=== PATIENT | female | born 1990 | race Caucasian/White ===

== ENCOUNTER 2023-02-10 05:28 | Inpatient (IN) ==
[2023-02-10] MEDS ORDERED: LACTATED RINGER'S 1,000 ML IV PRN (05:48)
[2023-02-10] MEDS ORDERED: OXYTOCIN 30 UNITS/500 ML BAG IV PRN ×3 (05:48→11:10)
[2023-02-10] MEDS ORDERED: LIDOCAINE 1% LOCAL 20 ML VIAL INFIL PRN (05:48)
[2023-02-10] MEDS ORDERED: BUPIVACAINE 0.25% PF 30 ML VIAL ONE (06:10)
[2023-02-10] MEDS ORDERED: LIDOCAINE 2%/EPINEPHRINE 1:200,000 20 ML PF ONE (06:10)
[2023-02-10] MEDS ORDERED: ePHEDrine sulfate 50 MG/ML AMP ONE (06:10)
[2023-02-10] MEDS ORDERED: fentaNYL citrate PF 100 MCG/2 ML VIAL ONE (06:10)
[2023-02-10] MEDS ORDERED: SODIUM CHLORIDE 0.9% PF INJ 10 ML VIAL ONE (06:10)
[2023-02-10] MEDS ORDERED: fentaNYL 2MCG/ML ROPIVACAINE 1.25MG/ML 100 ML BAG EPI ONE (06:11)
[2023-02-10 06:31] LABS: Hematocrit (blood only) 29.8 % (37.0-47.0); Hemoglobin 9.9 g/dl (12.0-16.0); Mean Corpuscular Hemoglobin 25.3 pg (25.0-34.0); Mean Corpuscular Hgb Conc 33.2 g/dL (32.0-36.0); Mean Platelet Volume 11.4 fL (9.4-12.4); Platelet Count 275 K/uL (130-400); RDW Coefficient of Variation 14.4 % (11.5-14.5); RDW Standard Deviation 39.4 fL (36.4-46.3); Red Blood Count 3.92 M/uL (4.20-5.40); White Blood Count 13.34 K/ul (4.8-10.8)
--- NOTE | 2023-02-10 07:20 | History & Physical Report ---
Date of Service February 10, 2023 Assessment & Plan (1) with 37 weeks completed gestation: (2) SROM (spontaneous rupture of membranes): Plan Plan admission, epidural on demand. pit if indicated. fetus category. anticipate . The baby at last us was in the >96% on last ultrasound. Patient is aware of this and potential risk of should dystocia. Had been scheduled for induction at 39 weeks. Admission and Anticipated Discharge Date Admission Date: February 10, 2023 History of Present Illness Chief Complaint: srom Primary Care Provider: Roseann Jordan DO Patient is a 32yowf who was just in labor and delivery for decreased fm and r/o rupture . she was brent and walked for 2 hours with no change--3cm. she wished to go home and then shortly had srom of copious clear fluid and represents. and Delivery Plans rhogam candidate - Rhogam given 12/10/22- MK Flu shot given 08/15/22 - AL Anatomy EFW 96% *Growth US at 32wks 36 wks <98%, eIOL 02/22 at 39 wks OB Labs: Blood Type B Negative 07/25/22 Antibody Screen POSITIVE A 01/24/23 Hemoglobin 9.8 g/dl (12.0-16.0) L 12/10/22 Hematocrit 28.8 % (34.1-44.9) L 12/10/22 Mean Corpuscular Volume 82.9 fL (80.0-100.0) 07/25/22 Platelet Count 249 K/uL (130-400) 07/25/22 Rubella IgG Antibody Immune (Immune) 07/25/22 Rapid Plasma Reagin Nonreactive (Nonreactive) 07/25/22 Hepatitis B Surface Antigen. NON-REACTIVE (NON-REACTIVE) 07/25/22 Hepatitis C Antibody (EIA) NON-REACTIVE (NON-REACTIVE) 07/25/22 HIV (1&2) Ag and Ab Confirmation NON-REACTIVE (NON-REACTIVE) 07/25/22 Glucose 1 Hour 50 gm Load 79 mg/dl (70-130) 12/10/22 Maternal Serum Alpha Fetoprotein 29.5 ng/mL 09/14/22 OB Optional Labs: Chlamydia trachomatis RNA NOT DETECTED (NOT DETECTED) 07/25/22 Neisseria gonorrhoeae RNA NOT DETECTED (NOT DETECTED) 07/25/22 Alpha Fetoprotein Triple Screen SEE NOTE 09/14/22 afp neg gbs neg cf/sma neg low risk panorama Allergies Allergy/AdvReac Type Severity Reaction Status Date / Time amoxicillin Allergy Severe Anaphylaxis Verified 02/10/23 00:11 Penicillins Allergy Severe Anaphylaxis Verified 02/10/23 00:11 Home Medications Medication Instructions Recorded Confirmed Type prenat.vits,shaylee,[id number] 1 tab PO DAILY 07/23/22 02/10/23 History omeprazole magnesium 20 mg 20 mg PO DAILY 02/10/23 02/10/23 History tablet,delayed release (Prilosec OTC) Patient History Medical History Bipolar disorder Foot drop History of chicken pox Surgical History No history of previous surgery Family History Grandmother (Maternal) Myocardial infarction Grandfather (Maternal) Myocardial infarction Diabetes Denies family history of Ovarian cancer Breast cancer Colorectal cancer Social History Smoking Status: Never smoker Hx Alcohol Use: No Hx Substance Use: No Preferred Language: [place] Citizen Communication Ability: Effective Harpoon Engagement Planning Operator Required: No Beliefs That Will Affect Care: None marital status: marital status details: Ever Puga (29) [phone] Current Living Situation: Spouse and Family Current Living Situation Comment: lives with spouse, daughter, dog, cat-to wear gloves/mask current occupational status: employed 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 Date GA wks Lbr Lgth wt Sex Type del Anes Place Del Prov ? Comment 03/12/16 38 11 7-13 F Epid ural Other [facility], [place] N drop foot related to epidural-pinched nerve [employer] History noncontributory Physical Exam Constitutional: WD/WN, vitals as above Gastrointestinal (Abdomen): soft, gravid, nt Psychiatric: A+Ox3, euthymic affect Genitourinary: cx--4-5 per nursing, grossly ruptured toco--q2-4 min efm--130s with mod variability, accels to 150s, no decels Results & Data Vital Signs (Past 12 Hours) Vital Signs Temp Pulse Resp BP Pulse Ox 02/10/23 05:52 36.9 C 20 02/10/23 07:17 95 H 121/66 02/10/23 07:13 85 100 02/10/23 07:12 91 H 91 02/10/23 07:08 94 H 100 02/10/23 07:03 86 100 02/10/23 06:59 20 02/10/23 06:59 36.8 C 20 02/10/23 06:58 86 100 02/10/23 06:53 80 100 02/10/23 06:48 75 100 02/10/23 06:43 86 100 02/10/23 06:38 81 100 02/10/23 06:33 88 100 02/10/23 06:28 81 100 02/10/23 06:23 78 100 02/10/23 06:18 79 100 02/10/23 06:13 76 100 02/10/23 06:08 75 100 02/10/23 06:07 77 117/77 Coding Level of Care Code None Diagnoses with 37 weeks completed gestation Z3A.37 SROM (spontaneous rupture of membranes)
[2023-02-10] MEDS ORDERED: fentaNYL 2MCG/ML ROPIVACAINE 1.25MG/ML 100 ML BAG EPI PRN (07:25)
[2023-02-10] MEDS ORDERED: NALOXONE HCL 1 MG in SODIUM CHLORIDE 0.9% 1000ML 1,000 ML IV PRN (07:25)
[2023-02-10] MEDS ORDERED: ePHEDrine sulfate 50 MG/ML AMP IV PRN (07:25)
[2023-02-10] MEDS ORDERED: diphenhydrAMINE 50 MG/ML VIAL IV PRN (07:25)
[2023-02-10] MEDS ORDERED: NALOXONE HCL 0.4 MG/1 ML VIAL/CARP IV PRN (07:25)
[2023-02-10] MEDS ORDERED: ONDANSETRON INJ 2 MG/ML 2 ML VIAL IV PRN (07:25)
[2023-02-10] MEDS ORDERED: NALBUPHINE HCL INJ 10 MG/ML AMP IV PRN (07:25)
--- NOTE | 2023-02-10 07:25 | Anesthesiology Consultation ---
Date of Service February 10, 2023 Assessment & Plan Chart Review Chart Review: Patient NOT seen in Pre Admission Testing and Acceptable Risk for Labor Epidural Consults Requested none ASA ASA2 Proposed Anesthesia Anesthesia Type: Labor Epidural Risk / Benefits Reviewed With: PT / POA / Parent / Guardian, Accepts Plan and Informed Consent Obtained History Height/Weight Height: 5 ft 5 in Weight: 74.389 kg Allergies Allergy/AdvReac Type Severity Reaction Status Date / Time amoxicillin Allergy Severe Anaphylaxis Verified 02/10/23 00:11 Penicillins Allergy Severe Anaphylaxis Verified 02/10/23 00:11 Medications Home Medications Medication Instructions Recorded Confirmed Last Taken prenat.vits,shaylee,[id number]-[id number]-hazii 1 tab PO DAILY 07/23/22 02/10/23 02/10/23 omeprazole magnesium 20 mg 20 mg PO DAILY 02/10/23 02/10/23 02/09/23 tablet,delayed release (Prilosec OTC) Active Medications Generic Name Dose Route Start Last Admin Trade Name Freq PRN Reason Stop Dose Admin Lactated Ringer's 1,000 mls @ 125 mls/hr 02/10/23 05:48 02/10/23 06:49 Lr IV 02/12/23 05:47 125 mls/hr .Q8H PRN Infusion L&D Protocol Protocol Past Medical History Medical History Bipolar disorder Foot drop History of chicken pox Exercise / Class Metabolic Activity II 4-5 Yardwork/Stairs/Walk up hill Past Family History Family History Grandmother (Maternal) Myocardial infarction Grandfather (Maternal) Myocardial infarction Diabetes Denies family history of Ovarian cancer Breast cancer Colorectal cancer Past Surgical History Surgical History No history of previous surgery Past Anesthesia History No Hx of Anesthesia Complications and No Family Hx of Anesthesia Complications History of PONV No Hx of PONV and No Hx of Motion Sickness Social History Smoking Status: Never smoker Hx Alcohol Use: No Hx Substance Use: No substance use type: does not use Physical Exam Vital Signs Last Vital Signs Temp 36.8 C 02/10/23 06:59 Pulse 94 H 02/10/23 07:23 Resp 20 02/10/23 06:59 BP 119/74 02/10/23 07:23 Pulse Ox 100 02/10/23 07:23 ENMT Mouth: no dentition abnormality Thyromental Distance: > or= 3.5 Finger Breadths Mallampati Class: II Neck normal visual inspection Respiratory normal respiratory effort Auscultation: lungs clear to auscultation bilaterally Cardiovascular Rate/Rhythm: regular rate and regular rhythm Psychiatric Orientation: alert Testing Laboratory Results 02/10/23 05:57
[2023-02-10] MEDS ORDERED: METHYLERGONOVINE MALEATE 0.2 MG/ML AMP ONE (11:07)
[2023-02-10] MEDS ORDERED: bisacodyL 10 MG SUPP PR PRN (11:10)
[2023-02-10] MEDS ORDERED: BENZOCAINE 20% AER SPR 82.5 GM CAN EXT PRN (11:10)
[2023-02-10] MEDS ORDERED: oxyCODONE/ACETAMINOPHEN 5mg/325mg TAB PO PRN (11:10)
[2023-02-10] MEDS ORDERED: METHYLERGONOVINE MALEATE 0.2 MG/ML AMP IM ONE (11:10)
[2023-02-10] MEDS ORDERED: HYDROCORTISONE ACETATE 25 MG SUPP PR PRN (11:10)
[2023-02-10] MEDS ORDERED: DIPHTHERIA/TETANUS/PERTUSSIS 0.5mL SYR/VIAL (Age 7+yrs) IM ONE (11:10)
--- NOTE | 2023-02-10 11:14 | Delivery Summary ---
Vaginal Delivery Summary Date of Service February 10, 2023 Vaginal Delivery Summary and 2nd Degree LAC Pre-operative Diagnosis: at 37 2/7 srom Post-operative Diagnosis: same Procedure: epidural pitocin augmentation second degree laceration and repair EBL: 400cc Anesthesia: epidural Procedure: The patient presented to labor and delivery with gross srom and early labor. She underwent epidural. ctx spaced and pit aug given. She progressed to c/c/+2. The patient pushed for about 15 minutes to deliver a viable female infant in vipul position. The shoulder and the rest of the infant was then delivered without difficulty. The baby was vigorous. The nose and mouth again bulb suctioned and the infant was placed in the maternal abdomen for drying and attention. Cord was clamped and cut at one minute of life. Cord blood and segment obtained. Placenta delivered spontaneous, intact with a three vessel cord. Cervix/sulci/rectum were intact. A second degree perineal laceration was repaired in the normal standard fashion. Hemostasis obtained with dilute pitocin, methergine and fundal massage. Apgars were 8/8. Mother and baby doing well at the end of the delivery. [facility] Vaginal Delivery Charge Delivery Type Details: and 2nd Degree LAC
--- NOTE | 2023-02-10 13:08 | Anesthesia Procedure Note ---
Date of Service February 10, 2023 Anesthesia Post Epidural Note Vital Signs Vital Signs: Temp Pulse Resp BP Pulse Ox 36.8 C 63 16 136/64 100 02/10/23 11:15 02/10/23 13:04 02/10/23 12:15 02/10/23 13:04 02/10/23 10:48 Pain Intensity Bilateral Abdomen: Pain Intensity: 0 Notes Mental Status: alert / awake / arousable Nausea / Vomiting: adequately controlled Pain: adequately controlled Airway Patency, RR, SpO2: stable & adequate BP & HR: stable & adequate Hydration State: stable & adequate Neuraxial Anesthesia: was administered and sensory block is resolving Anesthetic Complications: no major complications apparent Epidural: Removed without complications and With tip intact
[2023-02-10 14:48] LABS: Hematocrit (blood only) 31.4 % (37.0-47.0); Hemoglobin 10.3 g/dl (12.0-16.0)
[2023-02-10] MEDS: IBUPROFEN 600 MG TAB PO PRN (16:23)
[2023-02-10] MEDS: ACETAMINOPHEN 325 MG TAB PO PRN (18:19)
[2023-02-10] MEDS: DOCUSATE SODIUM 100 MG CAP PO SCH (19:57)
[2023-02-11] MEDS: IBUPROFEN 600 MG TAB PO PRN ×5 (03:05→20:45)
--- NOTE | 2023-02-11 05:47 | Obstetrical Progress Note ---
Date of Service <Belén Garcia - Last Filed: 02/11/23 06:24> February 11, 2023 Assessment & Plan <Belén Garcia DO - Last Filed: 02/11/23 06:24> (1) Status post vaginal delivery: continue OOB, ambulation, diet as tolerated - 6 week post f/u <Karon Cervantes MD, FACOG - Last Filed: 02/11/23 07:15> (1) Status post vaginal delivery: Subjective <Belén Garcia - Last Filed: 02/11/23 06:24> Guillermo is a 32 y/o female who is now PPD # 1 following vaginal delivery at 37 2/7 weeks. Reports feeling well overall this morning. Moderate abdominal cramping pain well managed on analgesics. Voiding. Tolerating meals overnight and able to ambulate some. Some persistent lochia with some improvement this morning. Breast feeding. Review of Systems Denies fever, chills, sweats Denies shortness of breath, difficulty breathing, chest pain, palpitations, chest pressure. Denies breast pain. Denies dysuria. Denies headache or changes in vision. Physical Exam <Belén Garcia - Last Filed: 02/11/23 06:24> General: Alert, oriented. No acute distress. Cardiac: Regular rate and rhythm, no murmurs/rubs/gallops. Respiratory: Clear to auscultation bilaterally a/p, no wheezes/rales/rhonchi. No increased work of breathing. Symmetrical chest rise. No respiratory distress. Abdomen: Soft, nontender, nondistended. Uterus: Uterine fundus firm, palpable 3 cm below umbilicus. Lower Extremities: No lower extremity edema or swelling. Results & Data <Belén Garcia - Last Filed: 02/11/23 06:24> Vital Signs (Past 12 Hours) Vital Signs Temp Pulse Resp BP Pulse Ox O2 Del Method 02/11/23 03:05 36.7 C 67 18 118/78 96 Room Air 02/10/23 23:20 36.8 C 83 18 114/64 96 Room Air 02/10/23 20:00 36.9 C 78 24 115/70 98 Room Air <Karon Cervantes MD, FACOG - Last Filed: 02/11/23 07:15> Co-Signing Physician Notes Resident Physician Supervision Note: I interviewed and examined the patient. Discussed with Dr. Garcia and agree with findings and plan as documented in the note. Any exceptions or clarifications are listed here: Doing well. Baby is on the bed in the nursery. Feeding well. Now off oxygen. Routine pp care for her. Documented By: Karon Cervantes MD, FACOG Resident Activity Tracking <Belén Garcia DO - Last Filed: 02/11/23 06:24> Resident Involvement: Resident Care Provided Care Provided: OB Delivery (post )
[2023-02-11 07:07] LABS: Hematocrit (blood only) 27.9 % (37.0-47.0); Hemoglobin 9.2 g/dl (12.0-16.0)
[2023-02-11] MEDS: DOCUSATE SODIUM 100 MG CAP PO SCH ×2 (08:30→20:45)
[2023-02-11] MEDS: PRENATAL VITAMIN 1 TAB PO SCH (08:30)
[2023-02-11] MEDS: ACETAMINOPHEN 325 MG TAB PO PRN (15:33)
[2023-02-11] MEDS ORDERED: bisacodyL 5 MG TABEC PO SCH (20:00)
--- NOTE | 2023-02-12 06:51 | Obstetrical Progress Note ---
Date of Service <Belén SCarlin Garcia DO - Last Filed: 02/12/23 07:47> February 12, 2023 Assessment & Plan <Belén Garcia DO - Last Filed: 02/12/23 07:47> (1) Status post vaginal delivery: continue OOB, ambulation, diet as tolerated - 6 week post f/u <Delvin Archer MD - Last Filed: 02/12/23 08:20> (1) Status post vaginal delivery: Subjective <Belén Jair DO Jose - Last Filed: 02/12/23 07:47> Guillermo is a 32 y/o female who is now PPD # 2 following vaginal delivery at 37 2/7 weeks. Reports feeling well overall this morning. Moderate abdominal cramping pain well managed on analgesics. Voiding. Tolerating meals overnight and able to ambulate some. Some persistent lochia with some improvement this morning. Breast feeding. Baby was in nursery yesterday, in room this morning. Review of Systems Denies fever, chills, sweats Denies shortness of breath, difficulty breathing, chest pain, palpitations, chest pressure. Denies breast pain. Denies dysuria. Denies headache or changes in vision. Physical Exam <Belén Garcia DO - Last Filed: 02/12/23 07:47> General: Alert, oriented. No acute distress. Cardiac: Regular rate and rhythm, no murmurs/rubs/gallops. Respiratory: Clear to auscultation bilaterally a/p, no wheezes/rales/rhonchi. No increased work of breathing. Symmetrical chest rise. No respiratory distress. Abdomen: Soft, nontender, nondistended. Uterus: Uterine fundus firm, palpable 3 cm below umbilicus. Lower Extremities: No lower extremity edema or swelling. Results & Data <Belén Garcia DO - Last Filed: 02/12/23 07:47> Vital Signs (Past 12 Hours) Vital Signs Temp Pulse Resp BP Pulse Ox O2 Del Method 02/12/23 00:09 36.6 C 81 16 108/66 94 Room Air 02/11/23 21:00 36.8 C 75 14 113/69 95 Room Air <Delvin Archer MD - Last Filed: 02/12/23 08:20> Co-Signing Physician Notes patient seen and evaluated with resident and agree with the above findings and plan. Patient stable for discharge. Resident Activity Tracking <Belén Garcia, DO - Last Filed: 02/12/23 07:47> Resident Involvement: Resident Care Provided Care Provided: OB Delivery (post )
[2023-02-12] MEDS: PRENATAL VITAMIN 1 TAB PO SCH (08:38)
[2023-02-12] MEDS: DOCUSATE SODIUM 100 MG CAP PO SCH (08:38)
[2023-02-12] MEDS: IBUPROFEN 600 MG TAB PO PRN ×2 (08:38→12:48)
== END 2023-02-12 14:26 | disposition home or self-care (01) | DRG 807 ==
LOC: OPB 05:28 → 4S1 05:30 → 4E2 14:44